=== PATIENT | male | born 1950 | race Caucasian/White ===

== ENCOUNTER 2022-03-03 08:25 | Outpatient (CLI) | payer MEDICARE | END 2022-03-03 08:26 | disposition home or self-care (01) | LOC: CSHWCC 08:25 | PROVIDERS: ATTEND Nurse Practitioner Family | DX: L89.104 Pressure ulcer of unspecified part of back, stage 4 (principal) | CPT/HCPCS: 97139; G0463; 99203 ==

== ENCOUNTER 2022-03-17 09:20 | Outpatient (CLI) | payer MEDICARE | END 2022-03-17 09:21 | disposition home or self-care (01) | LOC: CSHWCC 09:20 | PROVIDERS: ATTEND Nurse Practitioner Family | DX: L89.104 Pressure ulcer of unspecified part of back, stage 4 (principal); L89.154 Pressure ulcer of sacral region, stage 4 ==

== ENCOUNTER 2022-04-07 08:57 | Outpatient (CLI) | payer MEDICARE | END 2022-04-07 08:58 | disposition home or self-care (01) | LOC: CSHWCC 08:57 | PROVIDERS: ATTEND Nurse Practitioner Family | DX: L89.154 Pressure ulcer of sacral region, stage 4 (principal); L89.104 Pressure ulcer of unspecified part of back, stage 4 | CPT/HCPCS: 97605 ==

== ENCOUNTER 2022-05-26 09:19 | Outpatient (CLI) | payer MEDICARE | END 2022-05-26 09:20 | disposition home or self-care (01) | LOC: CSHWCC 09:19 | PROVIDERS: ATTEND Nurse Practitioner Family | DX: L89.154 Pressure ulcer of sacral region, stage 4 (principal); L89.104 Pressure ulcer of unspecified part of back, stage 4 | CPT/HCPCS: 11042 ==

== ENCOUNTER 2022-08-25 09:40 | Outpatient (CLI) | payer MEDICARE | END 2022-08-25 09:41 | disposition home or self-care (01) | LOC: CSHWCC 09:40 | PROVIDERS: ATTEND Nurse Practitioner Family | DX: L89.154 Pressure ulcer of sacral region, stage 4 (principal); L89.104 Pressure ulcer of unspecified part of back, stage 4 | CPT/HCPCS: 97597 ==

== ENCOUNTER 2022-09-22 09:25 | Outpatient (CLI) | payer MEDICARE | END 2022-09-22 09:26 | disposition home or self-care (01) | LOC: CSHWCC 09:25 | PROVIDERS: ATTEND Nurse Practitioner Family | DX: L89.104 Pressure ulcer of unspecified part of back, stage 4 (principal); L89.154 Pressure ulcer of sacral region, stage 4 | CPT/HCPCS: 97139; G0463; 99211 ==

== ENCOUNTER 2022-10-20 09:01 | Outpatient (CLI) | payer MEDICARE | END 2022-10-20 09:02 | disposition home or self-care (01) | LOC: CSHWCC 09:01 | PROVIDERS: ATTEND Nurse Practitioner Family | DX: Z74.01 Bed confinement status (principal) | CPT/HCPCS: 97139; G0463; 99212 ==